=== PATIENT | male | born 1945 | race African-American/Black ===

== ENCOUNTER 2023-01-07 13:49 | Inpatient (IN) | payer MEDICARE, MEDICAID ==
[2023-01-07] MEDS ORDERED: Guaifenesin DM 100-10/5 ML UDCUP PO PRN (16:22)
[2023-01-07] MEDS ORDERED: Acetaminophen 325 MG TAB PO PRN (16:22)
[2023-01-07] MEDS ORDERED: Calcium Carbonate 500 MG ChewTAB PO PRN (16:22)
[2023-01-07] MEDS: Albuterol 200 PUFF (6.7GM INHALER) INH SCH ×2 (22:34→23:36)
[2023-01-08] MEDS: Albuterol 200 PUFF (6.7GM INHALER) INH SCH ×6 (03:05→22:03)
[2023-01-08 04:29] LABS: Hematocrit 33.7 % (42.0-52.0); Hemoglobin 9.7 g/dL (14.0-18.0); Red Blood Cell (RBC) Count 3.27 mill/uL (4.70-6.10); White Blood Cell (WBC) Count 40.4 10x3/uL (4.8-10.8)
[2023-01-08 04:30] LABS: Manual Diff?? YES; Mean Corpuscular HGB CONC 28.8 g/dL (32.0-36.0); Mean Corpuscular Hemoglobin 29.7 pg (27.0-31.0); Mean Corpuscular Volume 103.1 fl (78.0-98.0); Platelet Count 101 10x3/uL (130-400); RBC Distribution Width 15.6 % (11.5-14.5)
[2023-01-08 04:47] LABS: Delete Auto Diff?? YES
[2023-01-08 05:00] LABS: ALT (SGPT) 21 U/L (8-55); AST (SGOT) 28 U/L (5-34); Albumin 3.2 g/dL (3.4-4.8); Alkaline Phosphatase 83 U/L (40-110); Anion Gap 13 mmol/L (10-20); BUN (Urea Nitrogen) 19 mg/dL (8.4-25.7); Bilirubin, Total 0.3 mg/dL (0.2-1.2); Calc. Creatinine Clearance 85 mL/min (70-130); Calcium 8.7 mg/dL (7.8-10.44); Carbon Dioxide 29 mmol/L (23-31); Chloride 99 mmol/L (98-107); Estimated GFR 95; Globulin 2.6 g/dL (2.4-3.5); Glucose 79 mg/dL (83-110); Potassium 4.6 mmol/L (3.5-5.1); Protein, Total 5.8 g/dL (5.8-8.1); Sodium 136 mmol/L (136-145)
[2023-01-08 05:30] LABS: Anisocytosis SLIGHT = 6-15 cells HPF (0-5); Band 1 % (5-11); CellaVision Operator ID lab.abc; Eosinophils 1 % (0-10); Large Platelets 3.4 % (0-5); Lymphocytes 67 % (21-51); Macrocytosis SLIGHT = 6-15 cells HPF (0-5); Monocytes 8 % (0-10); Neutrophil 20 % (42-75); Platelet Adequacy Comment Platelets Decreased; Polychromasia SLIGHT = 2-3 cells HPF (0-2); Reactive Lymphocytes 2 % (0-10); Smudge Cells 220.2 %; Total Cell Count 89
[2023-01-08] MEDS: Amlodipine 5 MG TAB PO SCH (08:02)
[2023-01-08] MEDS: Cyanocobalamin (Vitamin B-12) 1,000 MCG TAB PO SCH (08:03)
[2023-01-08] MEDS: Zinc Sulfate 220 MG CAP PO SCH (08:03)
[2023-01-08] MEDS: Ascorbic Acid 500 mg Chewable Tablet PO SCH (08:03)
[2023-01-08] MEDS: Folic Acid 1 MG TAB PO SCH (08:03)
[2023-01-09] MEDS: Albuterol 200 PUFF (6.7GM INHALER) INH SCH ×5 (04:45→17:35)
[2023-01-09] MEDS: Cyanocobalamin (Vitamin B-12) 1,000 MCG TAB PO SCH (08:57)
[2023-01-09] MEDS: Zinc Sulfate 220 MG CAP PO SCH (08:57)
[2023-01-09] MEDS: Amlodipine 5 MG TAB PO SCH (08:57)
[2023-01-09] MEDS: Ascorbic Acid 500 mg Chewable Tablet PO SCH (08:57)
[2023-01-09] MEDS: Folic Acid 1 MG TAB PO SCH (08:57)
[2023-01-09 10:12] LABS: Hematocrit 31.7 % (42.0-52.0); Hemoglobin 9.6 g/dL (14.0-18.0); Manual Diff?? YES; Mean Corpuscular HGB CONC 30.3 g/dL (32.0-36.0); Mean Corpuscular Hemoglobin 30.2 pg (27.0-31.0); Mean Corpuscular Volume 99.7 fl (78.0-98.0); Mean Platelet Volume 13.1 fL (7.4-10.4); Platelet Count 94 10x3/uL (130-400); RBC Distribution Width 15.5 % (11.5-14.5); Red Blood Cell (RBC) Count 3.18 mill/uL (4.70-6.10); White Blood Cell (WBC) Count 33.2 10x3/uL (4.8-10.8)
[2023-01-09 10:21] LABS: Delete Auto Diff?? YES
[2023-01-09 11:18] LABS: Band 2 % (5-11); CellaVision Operator ID LAB.GE; Lymphocytes 76 % (21-51); Monocytes 4 % (0-10); Myelocyte 1 % (0-0); Neutrophil 16 % (42-75); Platelet Adequacy Comment Platelets Decreased; Polychromasia SLIGHT = 2-3 cells HPF (0-2); Reactive Lymphocytes 1 % (0-10); Total Cell Count 100
[2023-01-10] MEDS: Albuterol 200 PUFF (6.7GM INHALER) INH SCH ×5 (00:36→14:25)
[2023-01-10 08:47] VITALS: TEMP 98.3
[2023-01-10] MEDS: Folic Acid 1 MG TAB PO SCH (08:48)
[2023-01-10] MEDS: Cyanocobalamin (Vitamin B-12) 1,000 MCG TAB PO SCH (08:48)
[2023-01-10] MEDS: Zinc Sulfate 220 MG CAP PO SCH (08:48)
[2023-01-10] MEDS: Ascorbic Acid 500 mg Chewable Tablet PO SCH (08:48)
[2023-01-10] MEDS: Amlodipine 5 MG TAB PO SCH (08:48)
[2023-01-10 10:04] LABS: Hematocrit 31.3 % (42.0-52.0); Hemoglobin 9.7 g/dL (14.0-18.0); Manual Diff?? YES; Mean Corpuscular Hemoglobin 30.6 pg (27.0-31.0); Mean Corpuscular Volume 98.7 fl (78.0-98.0); Mean Platelet Volume 12.9 fL (7.4-10.4); RBC Distribution Width 15.8 % (11.5-14.5); Red Blood Cell (RBC) Count 3.17 mill/uL (4.70-6.10); White Blood Cell (WBC) Count 28.2 10x3/uL (4.8-10.8)
[2023-01-10 10:11] LABS: Delete Auto Diff?? YES; Platelet Count 87 10x3/uL (130-400)
[2023-01-10 10:31] LABS: ALT (SGPT) 16 U/L (8-55); AST (SGOT) 18 U/L (5-34); Albumin 3.2 g/dL (3.4-4.8); Alkaline Phosphatase 76 U/L (40-110); Anion Gap 13 mmol/L (10-20); BUN (Urea Nitrogen) 19 mg/dL (8.4-25.7); Bilirubin, Total 0.4 mg/dL (0.2-1.2); Calc. Creatinine Clearance 68 mL/min (70-130); Carbon Dioxide 28 mmol/L (23-31); Chloride 99 mmol/L (98-107); Estimated GFR 90; Globulin 2.6 g/dL (2.4-3.5); Glucose 110 mg/dL (83-110); Potassium 4.8 mmol/L (3.5-5.1); Protein, Total 5.8 g/dL (5.8-8.1); Sodium 135 mmol/L (136-145)
[2023-01-10 10:53] LABS: Band 3 % (5-11); CellaVision Operator ID LAB.GE; Large Platelets 1.7 % (0-5); Lymphocytes 79 % (21-51); Macrocytosis SLIGHT = 6-15 cells HPF (0-5); Metamyelocyte 1 % (0-0); Monocytes 4 % (0-10); Neutrophil 11 % (42-75); Platelet Adequacy Comment Platelets Decreased; Polychromasia SLIGHT = 2-3 cells HPF (0-2); Reactive Lymphocytes 3 % (0-10); Smudge Cells 123.1 %; Total Cell Count 117
[2023-01-10 12:54] VITALS: BMI 19.1
[2023-01-10 16:53] VITALS: BP 148/74
== END 2023-01-10 16:56 | DRG 177 ==
LOC: IMCU/EMU 13:51 → T4-B 01-08 20:12
PROVIDERS: ADMIT Family Medicine; ATTEND Family Medicine
PROC: 8E0ZXY6 Isolation (ICD-10-PCS; principal; 2023-01-07)
DX: U07.1 COVID-19 (principal); G93.41 Metabolic encephalopathy; I50.23 Acute on chronic systolic (congestive) heart failure; J96.01 Acute respiratory failure with hypoxia; J12.82 Pneumonia due to coronavirus disease 2019; C91.10 Chronic lymphocytic leukemia of B-cell type not having achieved remission; E44.0 Moderate protein-calorie malnutrition; Z68.1 Body mass index [BMI] 19.9 or less, adult; E87.5 Hyperkalemia; E88.09 Other disorders of plasma-protein metabolism, not elsewhere classified; D64.9 Anemia, unspecified; I11.0 Hypertensive heart disease with heart failure; D69.6 Thrombocytopenia, unspecified; K40.90 Unilateral inguinal hernia, without obstruction or gangrene, not specified as recurrent; R59.0 Localized enlarged lymph nodes; Z79.899 Other long term (current) drug therapy; Z79.51 Long term (current) use of inhaled steroids; Q80.9 Congenital ichthyosis, unspecified
CPT/HCPCS: 36415; 36416; 80053; 83615; 84550; 85025; 97139; J1650

== ENCOUNTER 2023-01-16 17:47 | Inpatient (IN) | payer MEDICARE, MEDICAID ==
[2023-01-16] MEDS ORDERED: Ondansetron ODT 4 MG TAB PO PRN (22:03)
[2023-01-16] MEDS ORDERED: Ondansetron PF 4 MG/2 ML Vial IVP PRN (22:03)
[2023-01-16] MEDS ORDERED: Lactated Ringer's 1,000 ML IV SCH (22:15)
[2023-01-16] MEDS ORDERED: Acetaminophen 500 MG TAB PO PRN (22:17)
[2023-01-16] MEDS ORDERED: Mag-Al Plus 1200 MG/1200 MG/120 MG/30 ML UDCUP PO PRN (22:25)
[2023-01-16] MEDS ORDERED: Lactated Ringer's 500 ML IV SCH (23:15)
[2023-01-16] MEDS: metroNIDAZOLE 500 MG in Premix Bag 1 BAG IVPB SCH (23:49)
[2023-01-17] MEDS ORDERED: Cefepime 2 GM in Sodium Chloride 0.9% 100 ML IVPB SCH (01:00)
[2023-01-17] MEDS: Vancomycin 1 GM in Premix Bag 1 BAG IVPB SCH ×2 (02:26→16:45)
[2023-01-17 02:45] LABS: Creatinine, Urine 35.92 mg/dL (63-166); Sodium, Urine Less than 20 mmol/L (Not Available)
[2023-01-17 02:49] LABS: Actual Bicarbonate (HCO3a) 31.9 mEq/L (22-28); Base Excess (BEa) 3.7 mEq/L (-2.0 to +3.0); Calcium, Ionized (arterial) 1.19 mmol/L (1.12-1.30); Carboxyhemoglobin (COHb) 0.4 gm% (0.0-3.0); Hematocrit-ABG 32 % (42.0-52.0); Hemoglobin (Hb) 10.8 g/dL (14.0-18.0); Potassium - ABG Lab 3.92 mmol/L (3.70-5.30); pH, Arterial 7.286 (7.35-7.45)
[2023-01-17 02:50] LABS: Puncture Site LR
[2023-01-17] MEDS ORDERED: Furosemide 40 MG/4 ML VIAL ONE (02:50)
[2023-01-17 03:10] LABS: Hematocrit 35.6 % (42.0-52.0); Hemoglobin 9.9 g/dL (14.0-18.0); Manual Diff?? YES; Mean Corpuscular HGB CONC 27.8 g/dL (32.0-36.0); Mean Corpuscular Hemoglobin 29.5 pg (27.0-31.0); Mean Platelet Volume 12.3 fL (7.4-10.4); Platelet Count 118 10x3/uL (130-400); RBC Distribution Width 16.3 % (11.5-14.5); Red Blood Cell (RBC) Count 3.36 mill/uL (4.70-6.10); White Blood Cell (WBC) Count 35.4 10x3/uL (4.8-10.8)
[2023-01-17 03:13] LABS: Delete Auto Diff?? YES
[2023-01-17 03:38] LABS: ALT (SGPT) 33 U/L (8-55); AST (SGOT) 37 U/L (5-34); Albumin 2.8 g/dL (3.4-4.8); Alkaline Phosphatase 72 U/L (40-110); Anion Gap 13 mmol/L (10-20); BUN (Urea Nitrogen) 29 mg/dL (8.4-25.7); Bilirubin, Total 0.5 mg/dL (0.2-1.2); Calc. Creatinine Clearance 70 mL/min (70-130); Calcium 8.4 mg/dL (7.8-10.44); Carbon Dioxide 30 mmol/L (23-31); Chloride 108 mmol/L (98-107); Estimated GFR 93; Globulin 2.4 g/dL (2.4-3.5); Glucose 95 mg/dL (83-110); Potassium 4.4 mmol/L (3.5-5.1); Protein, Total 5.2 g/dL (5.8-8.1); Sodium 147 mmol/L (136-145)
[2023-01-17 03:42] LABS: Troponin I 0.034 ng/mL (< 0.028)
[2023-01-17 04:00] LABS: Band 5 % (5-11); CellaVision Operator ID lab.abc; Lymphocytes 72 % (21-51); Macrocytosis SLIGHT = 6-15 cells HPF (0-5); Neutrophil 24 % (42-75); Platelet Adequacy Comment Platelets Decreased; Smudge Cells 74.5 %; Total Cell Count 102
[2023-01-17] MEDS ORDERED: Furosemide 40 MG/4 ML VIAL SLOW IVP SCH (04:00)
[2023-01-17 04:38] LABS: Actual Bicarbonate (HCO3a) 28.5 mEq/L (22-28); Base Excess (BEa) 0.6 mEq/L (-2.0 to +3.0); Carboxyhemoglobin (COHb) 0.6 gm% (0.0-3.0); Hematocrit-ABG 33 % (42.0-52.0); Hemoglobin (Hb) 11.1 g/dL (14.0-18.0); O2 Tension (PaO2), arterial 86.6 mmHg (> 70.0); Potassium - ABG Lab 3.98 mmol/L (3.70-5.30)
[2023-01-17 04:40] LABS: CO2 Tension 63.6 mmHg (35.0-45.0); Puncture Site LRA
[2023-01-17] MEDS ORDERED: cefTRIAXone\\ROCEPHIN 1 GM in Sodium Chloride 0.9% 100 ML IVPB SCH (06:00)
[2023-01-17] MEDS ORDERED: Rocuronium Bromide 10 MG/ML (10ML VIAL) ONE (08:30)
[2023-01-17] MEDS ORDERED: Propofol 1,000 MG/100 ML VIAL IV ONE (08:38)
[2023-01-17] MEDS ORDERED: Pantoprazole 40 MG VIAL IVP SCH (09:00)
[2023-01-17] MEDS ORDERED: Meropenem 1 GM in Sodium Chloride 0.9% 100 ML IVPB SCH ×2 (09:00→14:00)
[2023-01-17] MEDS ORDERED: Amlodipine 5 MG TAB PO SCH (09:00)
[2023-01-17] MEDS ORDERED: Gabapentin 100 MG CAP PO SCH (09:30)
[2023-01-17] MEDS ORDERED: Fentanyl CADD 100 ML IV SCH (10:45)
[2023-01-17] MEDS ORDERED: Fentanyl BOLUS 250 ML IVPB PRN (10:45)
[2023-01-17] MEDS ORDERED: Morphine 2 MG/ML VIAL SLOW IVP PRN (10:45)
[2023-01-17] MEDS ORDERED: Lorazepam 2 MG/ML VIAL SLOW IVP PRN (10:45)
[2023-01-17] MEDS ORDERED: Propofol BOLUS 1,000 MG/100 ML VIAL IV PRN (10:45)
[2023-01-17 10:57] LABS: CO2 Tension 35.5 mmHg (35.0-45.0)
[2023-01-17 10:58] LABS: Actual Bicarbonate (HCO3a) 32.5 mEq/L (22-28); Base Excess (BEa) 10.1 mEq/L (-2.0 to +3.0); Carboxyhemoglobin (COHb) 0.2 gm% (0.0-3.0); Hematocrit-ABG 33 % (42.0-52.0); Hemoglobin (Hb) 11.1 g/dL (14.0-18.0); O2 Tension (PaO2), arterial 64.6 mmHg (> 70.0); Potassium - ABG Lab 3.78 mmol/L (3.70-5.30); Puncture Site RBA
[2023-01-17 10:59] LABS: ALV-art Gradient 247.525 mmHg (0-20)
[2023-01-17] MEDS: Propofol 1,000 MG/100 ML VIAL IV PRN (11:03)
[2023-01-17] MEDS: Ascorbic Acid 500 mg Chewable Tablet PO SCH (11:05)
[2023-01-17] MEDS: Zinc Sulfate 220 MG CAP PO SCH (11:09)
[2023-01-17] MEDS: Folic Acid 1 MG TAB PO SCH (11:09)
[2023-01-17] MEDS: metroNIDAZOLE 500 MG in Premix Bag 1 BAG IVPB SCH (11:10)
[2023-01-17] MEDS: Cyanocobalamin (Vitamin B-12) 1,000 MCG TAB PO SCH (11:11)
[2023-01-17] MEDS ORDERED: Calcium Gluconate 9.2 MEQ in Sodium Chloride 0.9% 100 ML IVPB SCH (12:00)
[2023-01-17] MEDS ORDERED: Electrolyte Replacement Protocol 1 EACH FS SCH (12:00)
[2023-01-17] MEDS ORDERED: Electrolyte Replacement Protocol FS PRN (12:00)
[2023-01-17] MEDS: Acetylcysteine (MUCOMYST) 200 MG/ML (10 ML VIAL) NEB SCH ×3 (15:01→18:47)
[2023-01-17] MEDS: Meropenem 1 GM in Sodium Chloride 0.9% 100 ML IVPB SCH (16:45)
[2023-01-17] MEDS: Diazepam 5 MG TAB PO SCH (20:18)
[2023-01-17] MEDS: Baclofen 10 MG TAB PO SCH (20:18)
[2023-01-17] MEDS: Saccharomyces boulardii 250 MG CAP PO SCH (20:19)
[2023-01-18] MEDS: Meropenem 1 GM in Sodium Chloride 0.9% 100 ML IVPB SCH ×3 (01:27→16:26)
[2023-01-18 02:54] LABS: Hematocrit 31.6 % (42.0-52.0); Hemoglobin 9.1 g/dL (14.0-18.0); Manual Diff?? YES; Mean Corpuscular HGB CONC 28.8 g/dL (32.0-36.0); Mean Corpuscular Hemoglobin 29.4 pg (27.0-31.0); Mean Platelet Volume 13.3 fL (7.4-10.4); RBC Distribution Width 16.3 % (11.5-14.5)
[2023-01-18 03:12] LABS: Vancomycin, Trough 20.6 ug/mL
[2023-01-18 03:37] LABS: Delete Auto Diff?? YES
[2023-01-18 03:54] LABS: Anion Gap 14 mmol/L (10-20); Anisocytosis SLIGHT = 6-15 cells HPF (0-5); BUN (Urea Nitrogen) 41 mg/dL (8.4-25.7); Band 15 % (5-11); Burr Cells SLIGHT = 2-5 cells HPF (0-1); Calc. Creatinine Clearance 49 mL/min (70-130); Carbon Dioxide 30 mmol/L (23-31); CellaVision Operator ID LAB.JMM; Chloride 108 mmol/L (98-107); Elliptocytes SLIGHT = 2-5 cells HPF (0-1); Lymphocytes 56 % (21-51); Monocytes 4 % (0-10); Neutrophil 26 % (42-75); Platelet Adequacy Comment Platelets Decreased; Polychromasia SLIGHT = 2-3 cells HPF (0-2); Potassium 3.7 mmol/L (3.5-5.1); Smudge Cells 119.6 %; Sodium 148 mmol/L (136-145); Total Cell Count 102
[2023-01-18 03:55] LABS: ALT (SGPT) 23 U/L (8-55); AST (SGOT) 36 U/L (5-34); Albumin 2.5 g/dL (3.4-4.8); Alkaline Phosphatase 62 U/L (40-110); Bilirubin, Total 0.7 mg/dL (0.2-1.2); Calcium 8.5 mg/dL (7.8-10.44); Estimated GFR 74; Globulin 2.7 g/dL (2.4-3.5); Glucose 109 mg/dL (83-110); Magnesium 2.1 mg/dL (1.6-2.6); Phosphorus 2.5 mg/dL (2.3-4.7); Protein, Total 5.2 g/dL (5.8-8.1)
[2023-01-18 03:59] LABS: Platelet Count 111 10x3/uL (130-400)
[2023-01-18 04:00] LABS: Mean Corpuscular Volume 101.9 fl (78.0-98.0)
[2023-01-18] MEDS: Vancomycin 1 GM in Premix Bag 1 BAG IVPB SCH ×2 (05:25→14:42)
[2023-01-18] MEDS: Propofol 1,000 MG/100 ML VIAL IV PRN (05:26)
[2023-01-18] MEDS ORDERED: Lactated Ringer's 1,000 ML IV SCH (06:45)
[2023-01-18 07:01] LABS: Actual Bicarbonate (HCO3a) 32.1 mEq/L (22-28); Base Excess (BEa) 8.8 mEq/L (-2.0 to +3.0); Calcium, Ionized (arterial) 1.12 mmol/L (1.12-1.30); Carboxyhemoglobin (COHb) 0.3 gm% (0.0-3.0); Hematocrit-ABG 28 % (42.0-52.0); Hemoglobin (Hb) 9.6 g/dL (14.0-18.0); O2 Tension (PaO2), arterial 80.9 mmHg (> 70.0); Potassium - ABG Lab 3.53 mmol/L (3.70-5.30); pH, Arterial 7.533 (7.35-7.45)
[2023-01-18] MEDS: Acetylcysteine (MUCOMYST) 200 MG/ML (10 ML VIAL) NEB SCH ×3 (07:10→23:05)
[2023-01-18 07:13] LABS: Puncture Site RBA
[2023-01-18] MEDS: Saccharomyces boulardii 250 MG CAP PO SCH ×2 (08:24→21:31)
[2023-01-18] MEDS: Diazepam 5 MG TAB PO SCH ×2 (08:24→21:30)
[2023-01-18] MEDS: Zinc Sulfate 220 MG CAP PO SCH (08:24)
[2023-01-18] MEDS: Ascorbic Acid 500 mg Chewable Tablet PO SCH (08:24)
[2023-01-18] MEDS: Folic Acid 1 MG TAB PO SCH (08:24)
[2023-01-18] MEDS: Baclofen 10 MG TAB PO SCH ×2 (08:24→21:30)
[2023-01-18] MEDS: Cyanocobalamin (Vitamin B-12) 1,000 MCG TAB PO SCH (08:24)
[2023-01-18] MEDS: Lansoprazole 15 MG/5 ML (BATCHED)UDCUP PER TUBE SCH (08:25)
[2023-01-18] MEDS ORDERED: Sodium Bicarbonate 50 MEQ in Dextrose 5% in Water 1,000 ML IV SCH ×2 (12:30)
[2023-01-18] MEDS: D5 1/4 NS 1,000 ML IV SCH ×2 (14:58→23:39)
[2023-01-18 17:23] LABS: Anion Gap 17 mmol/L (10-20); BUN (Urea Nitrogen) 46 mg/dL (8.4-25.7); Calc. Creatinine Clearance 46 mL/min (70-130); Calcium 8.5 mg/dL (7.8-10.44); Carbon Dioxide 26 mmol/L (23-31); Chloride 106 mmol/L (98-107); Estimated GFR 68; Glucose 167 mg/dL (83-110); Potassium 3.9 mmol/L (3.5-5.1); Sodium 145 mmol/L (136-145)
[2023-01-18] MEDS: Gabapentin 100 MG CAP PO SCH (21:29)
[2023-01-19] MEDS: Vancomycin 1 GM in Premix Bag 1 BAG IVPB SCH (04:38)
[2023-01-19] MEDS: Meropenem 1 GM in Sodium Chloride 0.9% 100 ML IVPB SCH ×2 (04:40→17:28)
[2023-01-19 04:57] LABS: Hemoglobin 8.1 g/dL (14.0-18.0); Manual Diff?? YES; Mean Corpuscular HGB CONC 28.9 g/dL (32.0-36.0); Mean Corpuscular Hemoglobin 29.6 pg (27.0-31.0); Mean Corpuscular Volume 102.2 fl (78.0-98.0); Mean Platelet Volume 13.8 fL (7.4-10.4); Platelet Count 122 10x3/uL (130-400); RBC Distribution Width 16.7 % (11.5-14.5); Red Blood Cell (RBC) Count 2.74 mill/uL (4.70-6.10); White Blood Cell (WBC) Count 25.5 10x3/uL (4.8-10.8)
[2023-01-19 05:23] LABS: Delete Auto Diff?? YES
[2023-01-19 05:25] LABS: ALT (SGPT) 20 U/L (8-55); AST (SGOT) 27 U/L (5-34); Albumin 2.5 g/dL (3.4-4.8); Alkaline Phosphatase 65 U/L (40-110); Anion Gap 12 mmol/L (10-20); BUN (Urea Nitrogen) 47 mg/dL (8.4-25.7); Bilirubin, Total 0.5 mg/dL (0.2-1.2); Calc. Creatinine Clearance 48 mL/min (70-130); Calcium 8.2 mg/dL (7.8-10.44); Carbon Dioxide 33 mmol/L (23-31); Chloride 103 mmol/L (98-107); Estimated GFR 72; Globulin 2.8 g/dL (2.4-3.5); Glucose 151 mg/dL (83-110); Potassium 3.7 mmol/L (3.5-5.1); Protein, Total 5.3 g/dL (5.8-8.1); Sodium 144 mmol/L (136-145)
[2023-01-19 05:37] LABS: Phosphorus 3.1 mg/dL (2.3-4.7)
[2023-01-19] MEDS: D5 1/4 NS 1,000 ML IV SCH (06:09)
[2023-01-19 06:22] LABS: Band 5 % (5-11); CellaVision Operator ID lab.abc; Large Platelets 7.9 % (0-5); Lymphocytes 74 % (21-51); Macrocytosis SLIGHT = 6-15 cells HPF (0-5); Monocytes 2 % (0-10); Neutrophil 19 % (42-75); Platelet Adequacy Comment Platelets Decreased; Polychromasia SLIGHT = 2-3 cells HPF (0-2); Smudge Cells 88.1 %; Total Cell Count 101
[2023-01-19] MEDS: Acetylcysteine (MUCOMYST) 200 MG/ML (10 ML VIAL) NEB SCH ×3 (06:54→18:54)
[2023-01-19 08:24] LABS: Actual Bicarbonate (HCO3a) 29.6 mEq/L (22-28); CO2 Tension 44.2 mmHg (35.0-45.0); Carboxyhemoglobin (COHb) 0.4 gm% (0.0-3.0); Hematocrit-ABG 28 % (42.0-52.0); Hemoglobin (Hb) 9.5 g/dL (14.0-18.0); O2 Tension (PaO2), arterial 65.9 mmHg (> 70.0); Potassium - ABG Lab 3.64 mmol/L (3.70-5.30); pH, Arterial 7.444 (7.35-7.45)
[2023-01-19 08:26] LABS: Puncture Site RBA
[2023-01-19] MEDS: Cyanocobalamin (Vitamin B-12) 1,000 MCG TAB PO SCH (08:34)
[2023-01-19] MEDS: Diazepam 5 MG TAB PO SCH ×2 (08:34→21:55)
[2023-01-19] MEDS: Lansoprazole 15 MG/5 ML (BATCHED)UDCUP PER TUBE SCH (08:34)
[2023-01-19] MEDS: Ascorbic Acid 500 mg Chewable Tablet PO SCH (08:34)
[2023-01-19] MEDS: Baclofen 10 MG TAB PO SCH ×2 (08:35→21:55)
[2023-01-19] MEDS: Folic Acid 1 MG TAB PO SCH (08:35)
[2023-01-19] MEDS: Gabapentin 100 MG CAP PO SCH ×2 (08:35→21:55)
[2023-01-19] MEDS: Saccharomyces boulardii 250 MG CAP PO SCH ×2 (08:35→21:55)
[2023-01-19] MEDS: Zinc Sulfate 220 MG CAP PO SCH (08:35)
[2023-01-19] MEDS ORDERED: Iopamidol-370 76% 500 ML MDV (1 ML CHARGE) ONE (08:59)
[2023-01-19] MEDS: Propofol 1,000 MG/100 ML VIAL IV PRN (09:46)
[2023-01-19] MEDS: Dextrose 5%-Lactated Ringers 1,000 ML IV SCH ×2 (09:46→17:47)
[2023-01-19] MEDS: Amiodarone 450 MG in Dextrose 5% in Water 250 ML IVPB SCH (22:48)
[2023-01-19 23:32] LABS: Anion Gap 11 mmol/L (10-20); BUN (Urea Nitrogen) 39 mg/dL (8.4-25.7); Calc. Creatinine Clearance 69 mL/min (70-130); Calcium 7.9 mg/dL (7.8-10.44); Carbon Dioxide 33 mmol/L (23-31); Chloride 105 mmol/L (98-107); Estimated GFR 88; Glucose 129 mg/dL (83-110); Potassium 3.7 mmol/L (3.5-5.1); Sodium 145 mmol/L (136-145)
[2023-01-20] MEDS: Dextrose 5%-Lactated Ringers 1,000 ML IV SCH ×2 (02:00→09:50)
[2023-01-20] MEDS: Meropenem 1 GM in Sodium Chloride 0.9% 100 ML IVPB SCH ×3 (05:58→21:08)
[2023-01-20 06:02] LABS: Hematocrit 26.6 % (42.0-52.0); Hemoglobin 7.5 g/dL (14.0-18.0); Manual Diff?? YES; Mean Corpuscular HGB CONC 28.2 g/dL (32.0-36.0); Mean Corpuscular Hemoglobin 29.8 pg (27.0-31.0); Mean Corpuscular Volume 105.6 fl (78.0-98.0); Mean Platelet Volume 13.7 fL (7.4-10.4); Platelet Count 126 10x3/uL (130-400); RBC Distribution Width 16.8 % (11.5-14.5); Red Blood Cell (RBC) Count 2.52 mill/uL (4.70-6.10); White Blood Cell (WBC) Count 22.5 10x3/uL (4.8-10.8)
[2023-01-20 06:31] LABS: Magnesium 2.1 mg/dL (1.6-2.6)
[2023-01-20 06:33] LABS: ALT (SGPT) 21 U/L (8-55); AST (SGOT) 37 U/L (5-34); Albumin 2.3 g/dL (3.4-4.8); Alkaline Phosphatase 77 U/L (40-110); Anion Gap 11 mmol/L (10-20); BUN (Urea Nitrogen) 38 mg/dL (8.4-25.7); Bilirubin, Total 0.6 mg/dL (0.2-1.2); Calc. Creatinine Clearance 64 mL/min (70-130); Carbon Dioxide 35 mmol/L (23-31); Chloride 103 mmol/L (98-107); Estimated GFR 89; Globulin 2.7 g/dL (2.4-3.5); Glucose 123 mg/dL (83-110); Potassium 3.6 mmol/L (3.5-5.1); Sodium 145 mmol/L (136-145)
[2023-01-20] MEDS ORDERED: fentaNYL PF 100 MCG/2 ML SYRINGE ONE (07:09)
[2023-01-20] MEDS: Amiodarone 450 MG in Dextrose 5% in Water 250 ML IVPB SCH (07:10)
[2023-01-20 07:13] LABS: Delete Auto Diff?? YES
[2023-01-20] MEDS: Acetylcysteine (MUCOMYST) 200 MG/ML (10 ML VIAL) NEB SCH ×3 (07:14→21:38)
[2023-01-20 08:05] LABS: Band 8 % (5-11); CellaVision Operator ID LAB.GE; Lymphocytes 61 % (21-51); Metamyelocyte 1 % (0-0); Monocytes 4 % (0-10); Neutrophil 26 % (42-75); Platelet Adequacy Comment Platelets Decreased; Polychromasia SLIGHT = 2-3 cells HPF (0-2); Smudge Cells 114.9 %; Total Cell Count 101
[2023-01-20] MEDS ORDERED: EPINEPHrine 1 MG/ML AMP ONE (08:28)
[2023-01-20] MEDS ORDERED: Bupivacaine 0.25% HCL 30 ML VIAL ONE (08:28)
[2023-01-20] MEDS ORDERED: Succinylcholine 200 MG/10 ml SYRINGE FS ONE (08:43)
[2023-01-20] MEDS ORDERED: PHENYLEPHRINE-NS 100 MCG/ML 10 ML SYRINGE ONE (08:43)
[2023-01-20] MEDS: Propofol 1,000 MG/100 ML VIAL IV PRN (09:48)
[2023-01-20] MEDS: Ascorbic Acid 500 mg Chewable Tablet PO SCH (09:49)
[2023-01-20] MEDS: Folic Acid 1 MG TAB PO SCH (09:49)
[2023-01-20] MEDS: Zinc Sulfate 220 MG CAP PO SCH (09:49)
[2023-01-20] MEDS: Baclofen 10 MG TAB PO SCH ×2 (09:49→21:08)
[2023-01-20] MEDS: Gabapentin 100 MG CAP PO SCH ×2 (09:49→21:07)
[2023-01-20] MEDS: Saccharomyces boulardii 250 MG CAP PO SCH ×2 (09:49→21:08)
[2023-01-20] MEDS: Diazepam 5 MG TAB PO SCH ×2 (09:49→21:08)
[2023-01-20] MEDS: Lansoprazole 15 MG/5 ML (BATCHED)UDCUP PER TUBE SCH (09:49)
[2023-01-20] MEDS: Cyanocobalamin (Vitamin B-12) 1,000 MCG TAB PO SCH (09:50)
[2023-01-20 10:02] LABS: CO2 Tension 68.4 mmHg (35.0-45.0)
[2023-01-21] MEDS: Meropenem 1 GM in Sodium Chloride 0.9% 100 ML IVPB SCH ×3 (04:36→22:16)
[2023-01-21 05:24] LABS: Hematocrit 27.3 % (42.0-52.0); Hemoglobin 7.8 g/dL (14.0-18.0); Manual Diff?? YES; Mean Corpuscular HGB CONC 28.6 g/dL (32.0-36.0); Mean Corpuscular Hemoglobin 29.7 pg (27.0-31.0); Mean Corpuscular Volume 103.8 fl (78.0-98.0); Mean Platelet Volume 14.2 fL (7.4-10.4); Platelet Count 130 10x3/uL (130-400); RBC Distribution Width 16.8 % (11.5-14.5); Red Blood Cell (RBC) Count 2.63 mill/uL (4.70-6.10); White Blood Cell (WBC) Count 21.1 10x3/uL (4.8-10.8)
[2023-01-21 05:32] LABS: Delete Auto Diff?? YES
[2023-01-21 05:59] LABS: ALT (SGPT) 23 U/L (8-55); AST (SGOT) 37 U/L (5-34); Albumin 2.3 g/dL (3.4-4.8); Alkaline Phosphatase 84 U/L (40-110); Anion Gap 13 mmol/L (10-20); BUN (Urea Nitrogen) 35 mg/dL (8.4-25.7); Bilirubin, Total 0.6 mg/dL (0.2-1.2); Calc. Creatinine Clearance 68 mL/min (70-130); Calcium 7.9 mg/dL (7.8-10.44); Carbon Dioxide 31 mmol/L (23-31); Chloride 102 mmol/L (98-107); Estimated GFR 91; Glucose 123 mg/dL (83-110); Phosphorus 3.1 mg/dL (2.3-4.7); Potassium 3.9 mmol/L (3.5-5.1); Protein, Total 5.3 g/dL (5.8-8.1); Sodium 142 mmol/L (136-145)
[2023-01-21 06:54] LABS: Anisocytosis SLIGHT = 6-15 cells HPF (0-5); Band 4 % (5-11); CellaVision Operator ID lab.abc; Large Platelets 4.9 % (0-5); Lymphocytes 34 % (21-51); Macrocytosis SLIGHT = 6-15 cells HPF (0-5); Monocytes 10 % (0-10); Neutrophil 52 % (42-75); Platelet Adequacy Comment Platelets Normal; Smudge Cells 72.5 %; Total Cell Count 102
[2023-01-21] MEDS: Acetylcysteine (MUCOMYST) 200 MG/ML (10 ML VIAL) NEB SCH ×3 (07:45→22:03)
[2023-01-21] MEDS ORDERED: Magnesium 2 GM/50 ML(in water) 2 GM in Premix Bag 1 BAG IVPB SCH (08:00)
[2023-01-21] MEDS ORDERED: Furosemide 20 MG/2 ML VIAL SLOW IVP SCH (08:30)
[2023-01-21] MEDS: Diazepam 5 MG TAB PO SCH ×2 (08:31→22:16)
[2023-01-21] MEDS: Ascorbic Acid 500 mg Chewable Tablet PO SCH (08:31)
[2023-01-21] MEDS: Folic Acid 1 MG TAB PO SCH (08:31)
[2023-01-21] MEDS: Gabapentin 100 MG CAP PO SCH ×2 (08:31→22:16)
[2023-01-21] MEDS: Zinc Sulfate 220 MG CAP PO SCH (08:31)
[2023-01-21] MEDS: Saccharomyces boulardii 250 MG CAP PO SCH ×2 (08:31→22:17)
[2023-01-21] MEDS: Cyanocobalamin (Vitamin B-12) 1,000 MCG TAB PO SCH (08:31)
[2023-01-21] MEDS: Baclofen 10 MG TAB PO SCH ×2 (08:31→22:16)
[2023-01-21] MEDS: Lansoprazole 15 MG/5 ML (BATCHED)UDCUP PER TUBE SCH (08:32)
[2023-01-21] MEDS: Amiodarone 450 MG in Dextrose 5% in Water 250 ML IVPB SCH (14:22)
[2023-01-21] MEDS: Propofol 1,000 MG/100 ML VIAL IV PRN (16:05)
[2023-01-22 05:13] LABS: Hematocrit 25.9 % (42.0-52.0); Hemoglobin 7.4 g/dL (14.0-18.0); Manual Diff?? YES; Mean Corpuscular HGB CONC 28.6 g/dL (32.0-36.0); Mean Corpuscular Hemoglobin 29.7 pg (27.0-31.0); Platelet Count 152 10x3/uL (130-400); Red Blood Cell (RBC) Count 2.49 mill/uL (4.70-6.10)
[2023-01-22 05:36] LABS: Magnesium 2.5 mg/dL (1.6-2.6); Phosphorus 3.3 mg/dL (2.3-4.7)
[2023-01-22 05:44] LABS: Delete Auto Diff?? YES
[2023-01-22 05:45] LABS: ALT (SGPT) 19 U/L (8-55); AST (SGOT) 28 U/L (5-34); Albumin 2.2 g/dL (3.4-4.8); Alkaline Phosphatase 79 U/L (40-110); Anion Gap 13 mmol/L (10-20); BUN (Urea Nitrogen) 36 mg/dL (8.4-25.7); Bilirubin, Total 0.6 mg/dL (0.2-1.2); Calc. Creatinine Clearance 67 mL/min (70-130); Calcium 7.8 mg/dL (7.8-10.44); Carbon Dioxide 31 mmol/L (23-31); Chloride 101 mmol/L (98-107); Estimated GFR 89; Glucose 105 mg/dL (83-110); Potassium 3.9 mmol/L (3.5-5.1); Protein, Total 5.2 g/dL (5.8-8.1); Sodium 141 mmol/L (136-145)
[2023-01-22] MEDS: Meropenem 1 GM in Sodium Chloride 0.9% 100 ML IVPB SCH ×3 (05:57→20:34)
[2023-01-22] MEDS: Amiodarone 450 MG in Dextrose 5% in Water 250 ML IVPB SCH ×2 (06:02→21:44)
[2023-01-22] MEDS: Acetylcysteine (MUCOMYST) 200 MG/ML (10 ML VIAL) NEB SCH (07:24)
[2023-01-22 08:09] LABS: Band 5 % (5-11); CellaVision Operator ID LAB.GE; Hypochromia SLIGHT = 6-15 cells HPF (0-5); Large Platelets 6.9 % (0-5); Lymphocytes 37 % (21-51); Macrocytosis SLIGHT = 6-15 cells HPF (0-5); Metamyelocyte 3 % (0-0); Monocytes 3 % (0-10); Myelocyte 1 % (0-0); Neutrophil 50 % (42-75); Platelet Adequacy Comment Platelets Normal; Polychromasia SLIGHT = 2-3 cells HPF (0-2); Reactive Lymphocytes 1 % (0-10); Total Cell Count 102
[2023-01-22] MEDS: Lansoprazole 15 MG/5 ML (BATCHED)UDCUP PER TUBE SCH (09:10)
[2023-01-22] MEDS: Saccharomyces boulardii 250 MG CAP PO SCH ×2 (09:12→20:34)
[2023-01-22] MEDS: Gabapentin 100 MG CAP PO SCH ×2 (09:12→20:33)
[2023-01-22] MEDS: Zinc Sulfate 220 MG CAP PO SCH (09:12)
[2023-01-22] MEDS: Baclofen 10 MG TAB PO SCH ×2 (09:13→20:34)
[2023-01-22] MEDS: Folic Acid 1 MG TAB PO SCH (09:13)
[2023-01-22] MEDS: Diazepam 5 MG TAB PO SCH ×2 (09:13→20:33)
[2023-01-22] MEDS: Propofol 1,000 MG/100 ML VIAL IV PRN (14:14)
[2023-01-22 17:32] LABS: Reference Lab Name LABCORP
[2023-01-23 05:28] LABS: Hematocrit 24.7 % (42.0-52.0); Manual Diff?? YES; Mean Corpuscular HGB CONC 28.3 g/dL (32.0-36.0); Mean Corpuscular Hemoglobin 29.5 pg (27.0-31.0); Mean Corpuscular Volume 104.2 fl (78.0-98.0); Mean Platelet Volume 13.7 fL (7.4-10.4); Platelet Count 161 10x3/uL (130-400); Red Blood Cell (RBC) Count 2.37 mill/uL (4.70-6.10); White Blood Cell (WBC) Count 23.1 10x3/uL (4.8-10.8)
[2023-01-23] MEDS: Meropenem 1 GM in Sodium Chloride 0.9% 100 ML IVPB SCH ×3 (05:30→21:54)
[2023-01-23 05:35] LABS: Delete Auto Diff?? YES
[2023-01-23 05:46] LABS: Phosphorus 2.9 mg/dL (2.3-4.7)
[2023-01-23 05:48] LABS: ALT (SGPT) 19 U/L (8-55); AST (SGOT) 32 U/L (5-34); Albumin 2.2 g/dL (3.4-4.8); Alkaline Phosphatase 75 U/L (40-110); Anion Gap 10 mmol/L (10-20); BUN (Urea Nitrogen) 41 mg/dL (8.4-25.7); Bilirubin, Total 0.5 mg/dL (0.2-1.2); Calc. Creatinine Clearance 71 mL/min (70-130); Calcium 7.8 mg/dL (7.8-10.44); Carbon Dioxide 34 mmol/L (23-31); Chloride 101 mmol/L (98-107); Estimated GFR 91; Glucose 101 mg/dL (83-110); Magnesium 2.4 mg/dL (1.6-2.6); Potassium 4.1 mmol/L (3.5-5.1); Protein, Total 5.2 g/dL (5.8-8.1); Sodium 141 mmol/L (136-145)
[2023-01-23 06:03] LABS: Anisocytosis SLIGHT = 6-15 cells HPF (0-5); Band 4 % (5-11); CellaVision Operator ID lab.abc; Hypochromia SLIGHT = 6-15 cells HPF (0-5); Lymphocytes 35 % (21-51); Macrocytosis SLIGHT = 6-15 cells HPF (0-5); Monocytes 8 % (0-10); Myelocyte 1 % (0-0); Neutrophil 52 % (42-75); Nucleated RBC (Manual Ct) 1 % (0); Platelet Adequacy Comment Platelets Normal; Total Cell Count 84
[2023-01-23] MEDS: Saccharomyces boulardii 250 MG CAP PO SCH ×2 (08:10→21:54)
[2023-01-23] MEDS: Zinc Sulfate 220 MG CAP PO SCH (08:10)
[2023-01-23] MEDS: Gabapentin 100 MG CAP PO SCH ×2 (08:10→21:53)
[2023-01-23] MEDS: Diazepam 5 MG TAB PO SCH ×2 (08:11→21:52)
[2023-01-23] MEDS: Folic Acid 1 MG TAB PO SCH (08:11)
[2023-01-23] MEDS: Baclofen 10 MG TAB PO SCH ×2 (08:11→21:54)
[2023-01-23] MEDS: Amiodarone 200 MG TAB PER TUBE SCH ×2 (08:16→21:52)
[2023-01-23] MEDS: Lansoprazole 15 MG/5 ML (BATCHED)UDCUP PER TUBE SCH (08:17)
[2023-01-24] MEDS: Propofol 1,000 MG/100 ML VIAL IV PRN ×2 (01:07→20:34)
[2023-01-24 04:56] LABS: Hematocrit 24.3 % (42.0-52.0); Hemoglobin 6.9 g/dL (14.0-18.0); Manual Diff?? YES; Mean Corpuscular HGB CONC 28.4 g/dL (32.0-36.0); Mean Corpuscular Volume 105.7 fl (78.0-98.0); Platelet Count 170 10x3/uL (130-400); RBC Distribution Width 16.9 % (11.5-14.5); White Blood Cell (WBC) Count 24.9 10x3/uL (4.8-10.8)
[2023-01-24 05:05] LABS: Delete Auto Diff?? YES
[2023-01-24 05:24] LABS: Magnesium 2.3 mg/dL (1.6-2.6); Phosphorus 2.7 mg/dL (2.3-4.7)
[2023-01-24 05:25] LABS: ALT (SGPT) 18 U/L (8-55); AST (SGOT) 27 U/L (5-34); Albumin 2.1 g/dL (3.4-4.8); Alkaline Phosphatase 73 U/L (40-110); Anion Gap 8 mmol/L (10-20); BUN (Urea Nitrogen) 42 mg/dL (8.4-25.7); Bilirubin, Total 0.4 mg/dL (0.2-1.2); Calc. Creatinine Clearance 79 mL/min (70-130); Calcium 7.8 mg/dL (7.8-10.44); Carbon Dioxide 35 mmol/L (23-31); Chloride 101 mmol/L (98-107); Estimated GFR 93; Globulin 3.2 g/dL (2.4-3.5); Glucose 105 mg/dL (83-110); Potassium 4.2 mmol/L (3.5-5.1); Protein, Total 5.3 g/dL (5.8-8.1); Sodium 140 mmol/L (136-145)
[2023-01-24 05:30] LABS: Band 12 % (5-11); CellaVision Operator ID LAB.CLH1; Hypochromia SLIGHT = 6-15 cells HPF (0-5); Lymphocytes 24 % (21-51); Macrocytosis SLIGHT = 6-15 cells HPF (0-5); Metamyelocyte 2 % (0-0); Monocytes 7 % (0-10); Neutrophil 54 % (42-75); Nucleated RBC (Manual Ct) 2 % (0); Platelet Adequacy Comment Platelets Normal; Reactive Lymphocytes 1 % (0-10); Total Cell Count 100
[2023-01-24] MEDS: Meropenem 1 GM in Sodium Chloride 0.9% 100 ML IVPB SCH ×3 (06:21→20:16)
[2023-01-24] MEDS: Lansoprazole 15 MG/5 ML (BATCHED)UDCUP PER TUBE SCH (09:44)
[2023-01-24] MEDS: Gabapentin 100 MG CAP PO SCH ×2 (09:45→20:15)
[2023-01-24] MEDS: Diazepam 5 MG TAB PO SCH ×2 (09:45→20:15)
[2023-01-24] MEDS: Zinc Sulfate 220 MG CAP PO SCH (09:45)
[2023-01-24] MEDS: Amiodarone 200 MG TAB PER TUBE SCH ×2 (09:46→20:16)
[2023-01-24] MEDS: Baclofen 10 MG TAB PO SCH ×2 (09:46→20:15)
[2023-01-24] MEDS: Saccharomyces boulardii 250 MG CAP PO SCH ×2 (09:46→20:15)
[2023-01-24] MEDS: Folic Acid 1 MG TAB PO SCH (09:47)
[2023-01-25 04:05] LABS: Hematocrit 27.7 % (42.0-52.0); Hemoglobin 8.2 g/dL (14.0-18.0); Manual Diff?? YES; Mean Corpuscular HGB CONC 29.6 g/dL (32.0-36.0); Mean Corpuscular Hemoglobin 30.6 pg (27.0-31.0); Mean Corpuscular Volume 103.4 fl (78.0-98.0); Platelet Count 189 10x3/uL (130-400); RBC Distribution Width 16.4 % (11.5-14.5); Red Blood Cell (RBC) Count 2.68 mill/uL (4.70-6.10); White Blood Cell (WBC) Count 25.9 10x3/uL (4.8-10.8)
[2023-01-25 04:09] LABS: Delete Auto Diff?? YES
[2023-01-25 04:27] LABS: ALT (SGPT) 18 U/L (8-55); AST (SGOT) 22 U/L (5-34); Albumin 2.2 g/dL (3.4-4.8); Alkaline Phosphatase 70 U/L (40-110); Anion Gap 12 mmol/L (10-20); BUN (Urea Nitrogen) 35 mg/dL (8.4-25.7); Bilirubin, Total 0.5 mg/dL (0.2-1.2); Calc. Creatinine Clearance 78 mL/min (70-130); Calcium 7.7 mg/dL (7.8-10.44); Carbon Dioxide 32 mmol/L (23-31); Chloride 101 mmol/L (98-107); Estimated GFR 93; Globulin 3.1 g/dL (2.4-3.5); Glucose 76 mg/dL (83-110); Potassium 4.5 mmol/L (3.5-5.1); Protein, Total 5.3 g/dL (5.8-8.1); Sodium 140 mmol/L (136-145)
[2023-01-25 04:31] LABS: Phosphorus 2.9 mg/dL (2.3-4.7)
[2023-01-25 04:41] LABS: Band 5 % (5-11); CellaVision Operator ID LAB.CLH1; Hypochromia SLIGHT = 6-15 cells HPF (0-5); Large Platelets 13.3 % (0-5); Lymphocytes 29 % (21-51); Macrocytosis SLIGHT = 6-15 cells HPF (0-5); Monocytes 3 % (0-10); Myelocyte 2 % (0-0); Neutrophil 60 % (42-75); Platelet Adequacy Comment Platelets Normal; Polychromasia SLIGHT = 2-3 cells HPF (0-2); Reactive Lymphocytes 1 % (0-10); Total Cell Count 90
[2023-01-25] MEDS: Meropenem 1 GM in Sodium Chloride 0.9% 100 ML IVPB SCH ×3 (05:08→21:27)
[2023-01-25] MEDS: Saccharomyces boulardii 250 MG CAP PO SCH ×2 (09:45→21:27)
[2023-01-25] MEDS: Gabapentin 100 MG CAP PO SCH ×2 (09:45→21:25)
[2023-01-25] MEDS: Baclofen 10 MG TAB PO SCH ×2 (09:45→21:26)
[2023-01-25] MEDS: Diazepam 5 MG TAB PO SCH ×2 (09:45→21:26)
[2023-01-25] MEDS: Folic Acid 1 MG TAB PO SCH (09:45)
[2023-01-25] MEDS: Zinc Sulfate 220 MG CAP PO SCH (09:45)
[2023-01-25] MEDS: Amiodarone 200 MG TAB PER TUBE SCH ×2 (09:45→21:26)
[2023-01-25] MEDS: Lansoprazole 15 MG/5 ML (BATCHED)UDCUP PER TUBE SCH (09:47)
[2023-01-25] MEDS: Propofol 1,000 MG/100 ML VIAL IV PRN (17:54)
[2023-01-26 04:42] LABS: Hematocrit 26.1 % (42.0-52.0); Hemoglobin 7.5 g/dL (14.0-18.0); Manual Diff?? YES; Mean Corpuscular HGB CONC 28.7 g/dL (32.0-36.0); Mean Corpuscular Volume 104.4 fl (78.0-98.0); Mean Platelet Volume 14.3 fL (7.4-10.4); Platelet Count 194 10x3/uL (130-400); RBC Distribution Width 16.2 % (11.5-14.5); White Blood Cell (WBC) Count 24.7 10x3/uL (4.8-10.8)
[2023-01-26 04:43] LABS: Delete Auto Diff?? YES
[2023-01-26] MEDS: Meropenem 1 GM in Sodium Chloride 0.9% 100 ML IVPB SCH ×3 (04:58→21:20)
[2023-01-26 05:08] LABS: Phosphorus 2.6 mg/dL (2.3-4.7)
[2023-01-26 05:10] LABS: Band 4 % (5-11); CellaVision Operator ID LAB.CLH1; Elliptocytes SLIGHT = 2-5 cells HPF (0-1); Hypochromia SLIGHT = 6-15 cells HPF (0-5); Large Platelets 21.3 % (0-5); Lymphocytes 28 % (21-51); Macrocytosis SLIGHT = 6-15 cells HPF (0-5); Monocytes 1 % (0-10); Neutrophil 67 % (42-75); Platelet Adequacy Comment Platelets Normal; Polychromasia SLIGHT = 2-3 cells HPF (0-2); Total Cell Count 75
[2023-01-26 05:13] LABS: ALT (SGPT) 13 U/L (8-55); AST (SGOT) 17 U/L (5-34); Albumin 2.1 g/dL (3.4-4.8); Alkaline Phosphatase 66 U/L (40-110); Anion Gap 9 mmol/L (10-20); BUN (Urea Nitrogen) 38 mg/dL (8.4-25.7); Bilirubin, Total 0.3 mg/dL (0.2-1.2); Calc. Creatinine Clearance 85 mL/min (70-130); Calcium 7.8 mg/dL (7.8-10.44); Carbon Dioxide 35 mmol/L (23-31); Chloride 102 mmol/L (98-107); Estimated GFR 95; Globulin 3.1 g/dL (2.4-3.5); Glucose 90 mg/dL (83-110); Potassium 4.3 mmol/L (3.5-5.1); Protein, Total 5.2 g/dL (5.8-8.1); Sodium 142 mmol/L (136-145)
[2023-01-26 07:19] VITALS: BP 132/61
[2023-01-26] MEDS: Folic Acid 1 MG TAB PO SCH (08:58)
[2023-01-26] MEDS: Saccharomyces boulardii 250 MG CAP PO SCH ×2 (08:58→21:21)
[2023-01-26] MEDS: Diazepam 5 MG TAB PO SCH (08:58)
[2023-01-26] MEDS: Gabapentin 100 MG CAP PO SCH ×2 (08:58→21:21)
[2023-01-26] MEDS: Zinc Sulfate 220 MG CAP PO SCH (08:58)
[2023-01-26] MEDS: Amiodarone 200 MG TAB PER TUBE SCH ×2 (08:58→21:20)
[2023-01-26] MEDS: Baclofen 10 MG TAB PO SCH ×2 (08:58→21:21)
[2023-01-26] MEDS: Lansoprazole 15 MG/5 ML (BATCHED)UDCUP PER TUBE SCH (09:20)
[2023-01-26] MEDS: Propofol 1,000 MG/100 ML VIAL IV PRN (13:19)
[2023-01-26] MEDS ORDERED: Diazepam 5 MG TAB PO PRN (14:03)
[2023-01-26 16:48] VITALS: TEMP 98.6
[2023-01-26] MEDS: Morphine 4 MG/ML VIAL SLOW IVP PRN ×2 (18:03→19:35)
[2023-01-26] MEDS: Lorazepam 2 MG/ML VIAL SLOW IVP PRN ×2 (18:03→19:37)
[2023-01-27] MEDS: Meropenem 1 GM in Sodium Chloride 0.9% 100 ML IVPB SCH (01:48)
[2023-01-27 03:54] VITALS: BMI 20.9
== END 2023-01-27 06:50 | disposition expired | DRG 853 ==
LOC: 2NO 17:47 → CCU 01-17 02:52
PROVIDERS: ADMIT Family Medicine; ATTEND Family Medicine
PROC: 8E0ZXY6 Isolation (ICD-10-PCS; 2023-01-16)
PROC: 0BH17EZ Insertion of Endotracheal Airway into Trachea, Via Natural or Artificial Opening (ICD-10-PCS; 2023-01-17)
PROC: 0DH67UZ Insertion of Feeding Device into Stomach, Via Natural or Artificial Opening (ICD-10-PCS; 2023-01-17)
PROC: 4A133R1 Monitoring of Arterial Saturation, Peripheral, Percutaneous Approach (ICD-10-PCS; 2023-01-17)
PROC: 3E03329 Introduction of Other Anti-infective into Peripheral Vein, Percutaneous Approach (ICD-10-PCS; 2023-01-17)
PROC: 5A1955Z Respiratory Ventilation, Greater than 96 Consecutive Hours (ICD-10-PCS; 2023-01-17)
PROC: 0B9J8ZX Drainage of Left Lower Lung Lobe, Via Natural or Artificial Opening Endoscopic, Diagnostic (ICD-10-PCS; 2023-01-17)
PROC: 0B9G8ZX Drainage of Left Upper Lung Lobe, Via Natural or Artificial Opening Endoscopic, Diagnostic (ICD-10-PCS; 2023-01-17)
PROC: 0B9F8ZX Drainage of Right Lower Lung Lobe, Via Natural or Artificial Opening Endoscopic, Diagnostic (ICD-10-PCS; 2023-01-17)
PROC: 0BC28ZZ Extirpation of Matter from Carina, Via Natural or Artificial Opening Endoscopic (ICD-10-PCS; 2023-01-17)
PROC: 07BJ0ZX Excision of Left Inguinal Lymphatic, Open Approach, Diagnostic (ICD-10-PCS; principal; 2023-01-20)
PROC: 3E033XZ Introduction of Vasopressor into Peripheral Vein, Percutaneous Approach (ICD-10-PCS; 2023-01-20)
PROC: 30233N1 Transfusion of Nonautologous Red Blood Cells into Peripheral Vein, Percutaneous Approach (ICD-10-PCS; 2023-01-24)
DX: A41.9 Sepsis, unspecified organism (principal); E43 Unspecified severe protein-calorie malnutrition; G93.41 Metabolic encephalopathy; J96.01 Acute respiratory failure with hypoxia; J69.0 Pneumonitis due to inhalation of food and vomit; U07.1 COVID-19; J96.02 Acute respiratory failure with hypercapnia; J18.9 Pneumonia, unspecified organism; S32.019A Unspecified fracture of first lumbar vertebra, initial encounter for closed fracture; I31.39 Other pericardial effusion (noninflammatory); E87.29 Other acidosis; E87.1 Hypo-osmolality and hyponatremia; R64 Cachexia; J98.19 Other pulmonary collapse; I50.42 Chronic combined systolic (congestive) and diastolic (congestive) heart failure; C91.10 Chronic lymphocytic leukemia of B-cell type not having achieved remission; C91.00 Acute lymphoblastic leukemia not having achieved remission; J98.11 Atelectasis; I24.8 Other forms of acute ischemic heart disease; E87.0 Hyperosmolality and hypernatremia; I47.1 Supraventricular tachycardia; G25.82 Stiff-man syndrome; Z51.5 Encounter for palliative care; Z66 Do not resuscitate; D64.9 Anemia, unspecified; R62.7 Adult failure to thrive; E86.0 Dehydration; I11.0 Hypertensive heart disease with heart failure; D69.6 Thrombocytopenia, unspecified; L89.150 Pressure ulcer of sacral region, unstageable; Z68.20 Body mass index [BMI] 20.0-20.9, adult; Z79.899 Other long term (current) drug therapy; Z78.1 Physical restraint status; I08.3 Combined rheumatic disorders of mitral, aortic and tricuspid valves
CPT/HCPCS: 36415; 36416; 36430; 36600; 70450; 71045; 71275; 72125; 74177; 80053; 80202; 81001; 82550; 82570; 82805; 83519; 83605; 83735; 83880; 84100; 84145; 84300; 84443; 84484; 85025; 85652; 86140; 86850; 86900; 86901; 87040; 87070; 87081; 87086; 87205; 88184; 88305; 88341; 88342; 88360; 93005; 93010; 93306; 94002; 94003; 96365; 96366; 96375; 97139; C9113; J0171; J0282; J0612; J0692; J0696; J1650; J1940; J2060; J2185; J2270; J2704; J3370; J3370-JW; J3475; J3490; J7042; J7070; J7120; J7608; J7611; P9016; Q9967; S0020